=== PATIENT | female | born 1950 | race Caucasian/White ===

== ENCOUNTER → 2016-08-08 | Outpatient (CLI) | payer OTHER ==
[~2016-08-08] MED LIST: ASPIRIN EC325 M1 PO; AZITHROMYCIN250 M1 PO; GLIPIZIDE10 MG PO; HYCODAN 1.5 MG480 ML PO; HYDROCODONE1 TABLET PO; KEFLEX 500MG.500 MG PO; LEVEMIR100 U/M1 SC; LEXAPRO 10 MG T10 MG PO; LISINOPRIL20 MG PO; METFORMIN1000 MG PO; ONE DAILY ESSEN1 TA2 PO; PRAVASTATIN20 MG PO; SINGULAIR10 MG PO; XANAX XR2 MG PO; ZYRTEC 10MG TAB10 MG PO
--- NOTE | 2016-08-08 14:16 | RADIOLOGY REPORT PS360 ---
CHEST(2 VIEWS-NOT PORTABLE) HISTORY: COPD, PNEUMONIA COMPARISON: 01/23/2011 FINDINGS: The cardiomediastinal silhouette and pulmonary vascularity are within normal limits. The lungs are clear without infiltrates, suspicious nodules, or pleural effusions. No acute bony abnormalities. IMPRESSION: No change with no acute finding
[2016-08-08 14:44] LABS: HEMOGLOBIN 14.7 g/dL (12.2-16.2); LYMPH # 1.5 K/mm3 (0.7-4.5); LYMPH % 15.2 % (10-50.0)
[2016-08-08 14:57] LABS: BUN 16 mg/dL (7-18); GFR (ESTIMATED) 56 ML/MIN (59-)
== END ==
LOC: LAB 13:06
PROVIDERS: Emergency Medicine
DX: J18.9 Pneumonia, unspecified organism (principal)